=== PATIENT | female | born 1950 | race Native Hawaiian/Other Pacific Islander ===

== ENCOUNTER → 2016-06-02 | Outpatient (CLI) | payer MEDICARE, OTHER | LOC: M RAD 11:52 | PROVIDERS: ATTEND Emergency Medicine | DX: Z87.891 Personal history of nicotine dependence (principal) ==

== ENCOUNTER → 2016-09-08 | Outpatient (CLI) | payer MEDICARE, OTHER ==
--- NOTE | 2016-09-08 15:17 | REP ---
CT of the chest without IV contrast: Comparison is the low-dose lung screening CT dated 06/02/2016. On the comparison study there was a 7 mm lung nodule in the left lung. This is no longer present and was likely focal atelectasis previously. On the comparison study there was a 11 mm ground-glass nodule laterally in the right middle lobe inferiorly. This is no longer present. It was likely atelectasis previously. On the comparison study there was a new faintly visible 4 mm nodule in the left lung on image 39. This is unchanged and is on image 38 out R study today. On the comparison study there was a 3 mm lung nodule in the left lower lobe on image 39. This is on image 39 MR study today and is unchanged. There are no other lung nodules. No pleural effusions. There are no infiltrates. There is no mediastinal lymph node enlargement. There is no axillary lymph node enlargement. In the absence of IV contrast the study is insensitive for hilar lymph node enlargement. The thoracic aorta is unremarkable. Cardiac size is normal. There is no pericardial effusion. The visualized upper abdominal contents are unremarkable. The adrenals are not imaged in entirety. The visualized portions of the adrenals are unremarkable. Impression: On the previous study. There is a left upper lobe 7 mm nodule and there was a right middle lobe 11 mm ground-glass opacity. These are no longer present. There is a persisting left upper lobe 4 mm nodule. There is a persisting left lower lobe 3 mm nodule. Follow-up for nodules this size according to Fleischner Society recommendations for a low risk patient is CT at 12 months, if stable, no further follow-up. For a high risk patient initial CT at 6-12 months, if stable repeat CT at 18-24 months. Signed by Juancarlos Bernabe MD 09/08/2016 03:09 P
== END ==
LOC: M RAD 12:43
PROVIDERS: ATTEND Internal Medicine Pulmonary Disease
DX: R91.1 Solitary pulmonary nodule (principal)

== ENCOUNTER → 2017-09-26 | Outpatient (CLI) | payer MEDICARE, OTHER | LOC: M RAD 10:31 | DX: R91.8 Other nonspecific abnormal finding of lung field (principal) | CPT/HCPCS: 71250 ==

== ENCOUNTER → 2018-09-07 | Outpatient (CLI) | payer MEDICARE, OTHER ==
[2018-09-07 17:15] LABS: BASO # 0.1 10^3/uL (0.0-0.2); BASO % 0.6 % (0.0-1.0); EOS # 0.2 10^3/uL (0.0-0.50); EOS % 1.8 % (0.0-3.0); HEMATOCRIT 42.3 % (36.0-47.0); HEMOGLOBIN 14.3 g/dl (12.0-15.5); LYMPH # 3.4 10^3/uL (1.5-4.5); LYMPH % 31.2 % (24.0-44.0); MEAN CORPUSCULAR HEMOGLOBIN 32.1 pg (27.0-33.0); MEAN CORPUSCULAR HGB CONC 33.8 g/dl (32.0-36.5); MEAN CORPUSCULAR VOLUME 95.1 fl (80.0-96.0); NEUTROPHILS # 6.2 10^3/uL (1.8-7.7); NEUTROPHILS % 56.9 % (36.0-66.0); PLATELET COUNT, AUTOMATED 366 10^3/uL (150-450); RED BLOOD COUNT 4.45 10^6/uL (4.00-5.40); WHITE BLOOD COUNT 10.9 10^3/uL (4.0-10.0)
[2018-09-07 17:54] LABS: ERYTHROCYTE SEDIMENTATION RATE 52 mm/hr (0-30)
== END ==
LOC: M LAB 16:39
PROVIDERS: ATTEND Internal Medicine
DX: M10.9 Gout, unspecified (principal); M25.561 Pain in right knee

== ENCOUNTER → 2020-09-15 | Outpatient (CLI) | payer MEDICARE, OTHER ==
--- NOTE | 2020-09-15 11:55 | REP ---
INDICATION: COUGH COMPARISON: 02/23/2014 TECHNIQUE: PA and lateral. FINDINGS: The mediastinum and cardiac silhouette are normal. Evidence for prior CABG. The lung shabazz are clear and without acute consolidation, effusion, or pneumothorax. The skeletal structures are intact and normal. IMPRESSION: No acute cardiopulmonary process. <Electronically signed by Erasmo Yee > 09/15/20 [id number]
== END ==
LOC: M WUC 11:31
PROVIDERS: ATTEND Internal Medicine
DX: R05 Cough (principal)

== ENCOUNTER → 2021-01-04 | Outpatient (CLI) | payer MEDICARE, OTHER ==
[~2021-01-04] MED LIST: GASTROGRAFIN SOLUTION 30ML (Q9963) ONE; ISOVUE-370 76% 100ML VIAL ONE
--- NOTE | 2021-01-04 15:55 | REP ---
INDICATION: LLQ PAIN ? DIVERTICULITIS. COMPARISON: None. TECHNIQUE: Abdomen/pelvis CT without and with IV contrast and with bowel contrast FINDINGS: The visualized lung shabazz are unremarkable except for minor atelectasis at the inferior tip of the lingula. The hepatic parenchyma is unremarkable. There are several tiny calculi in the gallbladder fundus along the dependent wall. The gallbladder is otherwise unremarkable. There is no biliary duct dilatation. No pericholecystic fluid. The pancreas and spleen are unremarkable. The adrenals are unremarkable. The kidneys are unremarkable. There are no renal calculi. No hydronephrosis. The abdominal aorta is unremarkable except for calcified atheroma. There is no periaortic adenopathy or mass. There is no bowel distention or obstruction. No colonic diverticula are identified. The colon is otherwise unremarkable. There is no ascites or adenopathy. Pelvis: The bladder is markedly distended. Uterus and adnexa are unremarkable. The pelvic bowel loops are unremarkable. There is no pelvic adenopathy or free fluid. IMPRESSION: There is no CT evidence of diverticulosis or diverticulitis. There are no renal calculi. There is no hydronephrosis. There is no bowel distention or obstruction. There are no inflammatory changes in the mesentery. There is no ascites or adenopathy. The bladder is markedly distended. <Electronically signed by Juancarlos Bernabe > 01/04/21 [id number]
== END ==
LOC: M PLAIMG 13:23
PROVIDERS: ATTEND Internal Medicine
DX: R10.32 Left lower quadrant pain (principal)
CPT/HCPCS: 74178; Q9963; Q9967

== ENCOUNTER → 2021-02-17 | Outpatient (REF) | payer MEDICARE, OTHER | LOC: M LAB REF 16:06 | PROVIDERS: ATTEND Internal Medicine | DX: D51.9 Vitamin B12 deficiency anemia, unspecified (principal) ==

== ENCOUNTER → 2021-09-15 | Outpatient (CLI) | payer MEDICARE, OTHER | LOC: M RAD 14:21 | PROVIDERS: ATTEND Internal Medicine Pulmonary Disease | DX: R94.2 Abnormal results of pulmonary function studies (principal) ==

== ENCOUNTER → 2021-09-20 | Outpatient (CLI) | payer MEDICARE, OTHER | LOC: M WHC 14:15 | PROVIDERS: ATTEND Internal Medicine | DX: Z12.31 Encounter for screening mammogram for malignant neoplasm of breast (principal); Z13.820 Encounter for screening for osteoporosis; M85.851 Other specified disorders of bone density and structure, right thigh; M85.852 Other specified disorders of bone density and structure, left thigh; M85.88 Other specified disorders of bone density and structure, other site ==

== ENCOUNTER → 2021-10-29 | Outpatient (REF) | payer MEDICARE, OTHER ==
[2021-10-29 18:47] LABS: PERCENT SATURATION 25.7 % (13.2-45.0)
== END ==
LOC: M LAB REF 16:58
PROVIDERS: ATTEND Internal Medicine
DX: R10.13 Epigastric pain (principal); D50.9 Iron deficiency anemia, unspecified

== ENCOUNTER → 2021-11-18 | Outpatient (CLI) | payer MEDICARE, OTHER ==
[~2021-11-18] MED LIST changes: +E-Z-GAS II EFFERVESCENT PACKET (SODIUM BICARB./CITRIC ACID/SIMETHICONE) As Ordered ONE; +E-Z-HD 98% w/w 340GM SUSP BTL As Ordered ONE; +E-Z-PAQUE 96% w/w SUSP 176GM BTL As Ordered ONE; -GASTROGRAFIN SOLUTION 30ML (Q9963) ONE; -ISOVUE-370 76% 100ML VIAL ONE
== END ==
LOC: M RAD 07:34
PROVIDERS: ATTEND Internal Medicine
DX: R10.13 Epigastric pain (principal)

== ENCOUNTER → 2022-03-19 | Outpatient (CLI) | payer MEDICARE, OTHER | LOC: M RAD 12:37 | PROVIDERS: ATTEND Physician Assistant | DX: M19.012 Primary osteoarthritis, left shoulder (principal) ==

== ENCOUNTER → 2022-06-29 | Outpatient (CLI) | payer MEDICARE, OTHER ==
[~2022-06-29] MED LIST changes: +ALLE1TAB23 PO; +ALLO100T PO; +AMLO1TAB24 PO; +ASPI81TA26 PO; +ATOR80TA59 PO; +BIOT2500 PO; -E-Z-GAS II EFFERVESCENT PACKET (SODIUM BICARB./CITRIC ACID/SIMETHICONE) As Ordered ONE; -E-Z-HD 98% w/w 340GM SUSP BTL As Ordered ONE; -E-Z-PAQUE 96% w/w SUSP 176GM BTL As Ordered ONE; +PANT40TA29 PO; +TELM1TAB37 PO; +VITA400D PO
== END ==
LOC: M LABSMTC 10:47
PROVIDERS: ATTEND Anesthesiology
DX: Z20.828 Contact with and (suspected) exposure to other viral communicable diseases (principal); Z11.52 Encounter for screening for COVID-19

== ENCOUNTER 2022-07-04 12:23 | Day surgery (SDC) | payer MEDICARE, OTHER ==
[~2022-07-04] VITALS: Ht 149.9 cm; Wt 50.4 kg
[~2022-07-04 12:23] MED LIST changes: +NS 1,000 ML IV ONE
[2022-07-04] MEDS ORDERED: LIDOCAINE 2% 100MG/5ML SDV (FOR ANES.) As Ordered ONE (13:23)
[2022-07-04] MEDS ORDERED: propofoL 200 MG/20 ML VIAL As Ordered ONE (13:23)
[2022-07-04 13:44] VITALS: BP 116/55
== END 2022-07-04 13:52 | disposition home or self-care (01) ==
LOC: M OPP 12:23
PROVIDERS: ATTEND Internal Medicine Gastroenterology
DX: K31.89 Other diseases of stomach and duodenum (principal); R10.13 Epigastric pain; I10 Essential (primary) hypertension; E78.5 Hyperlipidemia, unspecified; K21.9 Gastro-esophageal reflux disease without esophagitis; Z87.891 Personal history of nicotine dependence; Z79.02 Long term (current) use of antithrombotics/antiplatelets; Z79.82 Long term (current) use of aspirin; Z79.899 Other long term (current) drug therapy; Z95.1 Presence of aortocoronary bypass graft; Z80.1 Family history of malignant neoplasm of trachea, bronchus and lung

== ENCOUNTER → 2022-07-13 | Outpatient (CLI) | payer MEDICARE, OTHER ==
[~2022-07-13] MED LIST changes: -NS 1,000 ML IV ONE
== END ==
LOC: M RAD 10:59
PROVIDERS: ATTEND Physician Assistant
DX: I73.9 Peripheral vascular disease, unspecified (principal)

== ENCOUNTER → 2022-11-17 | Outpatient (CLI) | payer MEDICARE, OTHER ==
[~2022-11-17] MED LIST changes: +CHOL10DR5 PO; -VITA400D PO
== END ==
LOC: M RAD 12:14
PROVIDERS: ATTEND Internal Medicine Pulmonary Disease
DX: Z87.891 Personal history of nicotine dependence (principal)

== ENCOUNTER → 2023-03-31 | Outpatient (CLI) | payer MEDICARE, OTHER | LOC: M WUC 14:51 | PROVIDERS: ATTEND Internal Medicine | DX: R05.9 Cough, unspecified (principal); I51.7 Cardiomegaly ==

== ENCOUNTER → 2023-04-18 | Outpatient (REF) | payer MEDICARE, OTHER | LOC: M LAB REF 15:47 | PROVIDERS: ATTEND Nurse Practitioner Family | DX: R30.0 Dysuria (principal) ==

== ENCOUNTER 2023-07-12 00:37 | Emergency (ER) | payer MEDICARE, OTHER ==
[~2023-07-12] VITALS: Ht 149.9 cm; Wt 49.1 kg
[~2023-07-12 00:37] MED LIST changes: -ALLE1TAB23 PO; +FEXO-157 PO
[2023-07-12 01:15] LABS: APPEARANCE, URINE CLEAR (CLEAR); BACTERIA, URINE AUTO NEGATIVE (NEGATIVE); BILIRUBIN, URINE AUTO NEGATIVE (NEGATIVE); BLOOD, URINE BLOOD 1+ (NEGATIVE); COLOR, URINE STRAW (YELLOW); GLUCOSE, URINE (UA) AUTO NEGATIVE (NEGATIVE); KETONE, URINE AUTO NEGATIVE (NEGATIVE); LEUKOCYTE ESTERASE, URINE AUTO NEGATIVE (NEGATIVE); MUCUS, URINE SMALL (NEGATIVE); NITRITE, URINE AUTO NEGATIVE (NEGATIVE); PROTEIN, URINE AUTO NEGATIVE (NEGATIVE); RBC, URINE AUTO 0 /HPF (0-3); SPECIFIC GRAVITY URINE AUTO 1.008 (1.002-1.035); SQUAMOUS EPITHELIAL CELL UR AU 0 /HPF (0-6); UROBILINOGEN, URINE AUTO 0.2 mg/dL (0.0-2.0); WBC, URINE AUTO 1 /HPF (0-3)
[2023-07-12 01:35] LABS: BASO % 0.3 % (0.0-1.0); EOS # 0.1 10^3/uL (0.0-0.5); EOS % 0.9 % (0.0-3.0); HEMATOCRIT 40.7 % (36.0-47.0); HEMOGLOBIN 13.8 g/dl (12.0-15.5); LYMPH # 2.8 10^3/uL (1.5-5.0); LYMPH % 31.6 % (24.0-44.0); MEAN CORPUSCULAR HEMOGLOBIN 31.6 pg (27.0-33.0); MEAN CORPUSCULAR HGB CONC 33.9 g/dl (32.0-36.5); MEAN CORPUSCULAR VOLUME 93.1 fl (80.0-96.0); MONO # 1.5 10^3/uL (0.0-0.8); MONO % 16.4 % (2.0-8.0); NEUTROPHILS # 4.5 10^3/uL (1.5-8.5); NEUTROPHILS % 50.5 % (36.0-66.0); PLATELET COUNT, AUTOMATED 262 10^3/uL (150-450); RED BLOOD COUNT 4.37 10^6/uL (4.00-5.40); WHITE BLOOD COUNT 8.9 10^3/uL (4.0-10.0)
[2023-07-12 02:02] LABS: LIPASE 79 U/L (12-53); RSV AMPLIFICATION NEGATIVE (NEGATIVE)
[2023-07-12 02:04] LABS: ALBUMIN 4.2 G/DL (3.2-5.2); ALKALINE PHOSPHATASE 106 U/L (46-116); ALT/SGPT 39 U/L (7.0-40); AST/SGOT 38 U/L (<34); BILIRUBIN,DIRECT 0.1 MG/DL (<0.4); BILIRUBIN,TOTAL 0.3 MG/DL (0.3-1.2); BLOOD UREA NITROGEN 16 MG/DL (9-23); CALCIUM LEVEL 8.2 MG/DL (8.3-10.6); CARBON DIOXIDE LEVEL 27 MMOL/L (20-31); CHLORIDE LEVEL 104 MMOL/L (98-107); CREATININE FOR GFR 0.61 MG/DL (0.55-1.30); GLOMERULAR FILTRATION RATE > 60.0 (>39); GLUCOSE, FASTING 96 MG/DL (74-106); POTASSIUM SERUM 3.4 MMOL/L (3.5-5.1); SODIUM LEVEL 137 MMOL/L (136-145); TOTAL PROTEIN 7.5 G/DL (5.7-8.2)
[2023-07-12] MEDS: NS 500 ML IV ONE (02:05)
[2023-07-12] MEDS: DICYCLOMINE 10 MG CAP PO ONE (02:05)
[2023-07-12] MEDS ORDERED: LOPE2TAB12 PO (03:47)
[2023-07-12] MEDS ORDERED: ONDA4TAB6 PO (03:47)
[2023-07-12] MEDS: LOPERAMIDE 2 MG CAPLET PO ONE (03:58)
[2023-07-12 04:00] VITALS: BP 167/74; TEMP 97.8; O2SAT 98
== END 2023-07-12 04:06 | disposition home or self-care (01) ==
LOC: M ED 00:37
DX: A08.32 Astrovirus enteritis (principal); K21.9 Gastro-esophageal reflux disease without esophagitis; I10 Essential (primary) hypertension; K27.9 Peptic ulcer, site unspecified, unspecified as acute or chronic, without hemorrhage or perforation; Z88.5 Allergy status to narcotic agent; Z88.6 Allergy status to analgesic agent; Z79.82 Long term (current) use of aspirin; Z79.02 Long term (current) use of antithrombotics/antiplatelets; Z79.83 Long term (current) use of bisphosphonates; Z79.899 Other long term (current) drug therapy

== ENCOUNTER → 2023-09-07 | Outpatient (REF) | payer MEDICARE, OTHER ==
[~2023-09-07] MED LIST changes: +LOPE2TAB12 PO; +ONDA4TAB6 PO
[2023-09-07 16:52] LABS: APPEARANCE, URINE CLEAR (CLEAR); BACTERIA, URINE AUTO NEGATIVE (NEGATIVE); BILIRUBIN, URINE AUTO NEGATIVE (NEGATIVE); BLOOD, URINE BLOOD NEGATIVE (NEGATIVE); COLOR, URINE COLORLESS (YELLOW); GLUCOSE, URINE (UA) AUTO NEGATIVE (NEGATIVE); KETONE, URINE AUTO NEGATIVE (NEGATIVE); LEUKOCYTE ESTERASE, URINE AUTO NEGATIVE (NEGATIVE); MUCUS, URINE SMALL (NEGATIVE); NITRITE, URINE AUTO NEGATIVE (NEGATIVE); PROTEIN, URINE AUTO NEGATIVE (NEGATIVE); RBC, URINE AUTO 0 /HPF (0-3); SPECIFIC GRAVITY URINE AUTO 1.002 (1.002-1.035); SQUAMOUS EPITHELIAL CELL UR AU 0 /HPF (0-6); UROBILINOGEN, URINE AUTO 0.2 mg/dL (0.0-2.0); WBC, URINE AUTO 0 /HPF (0-3)
== END ==
LOC: M LAB REF 16:23
PROVIDERS: ATTEND Internal Medicine
DX: R30.0 Dysuria (principal); R35.0 Frequency of micturition

== ENCOUNTER → 2023-09-22 | Outpatient (CLI) | payer MEDICARE, OTHER | LOC: M RAD 15:31 | PROVIDERS: ATTEND Internal Medicine | DX: N83.201 Unspecified ovarian cyst, right side (principal); N88.8 Other specified noninflammatory disorders of cervix uteri ==

== ENCOUNTER → 2023-10-09 | Outpatient (REF) | payer MEDICARE, OTHER | LOC: M LAB REF 11:50 | PROVIDERS: ATTEND Internal Medicine | DX: R10.2 Pelvic and perineal pain (principal); C49.5 Malignant neoplasm of connective and soft tissue of pelvis; D39.11 Neoplasm of uncertain behavior of right ovary ==

== ENCOUNTER → 2023-11-03 | Outpatient (CLI) | payer MEDICARE, OTHER ==
[~2023-11-03] MED LIST changes: +ONDA-282 PO; -ONDA4TAB6 PO
== END ==
LOC: M WHC 14:09
PROVIDERS: ATTEND Internal Medicine
DX: Z12.31 Encounter for screening mammogram for malignant neoplasm of breast (principal)

== ENCOUNTER → 2023-12-29 | Outpatient (REF) | payer MEDICARE, OTHER | LOC: M LAB REF 16:21 | PROVIDERS: ATTEND Physician Assistant | DX: R30.0 Dysuria (principal) ==

== ENCOUNTER → 2024-02-12 | Outpatient (REF) | payer MEDICARE, OTHER ==
[~2024-02-12] MED LIST changes: -FEXO-157 PO; +FEXO-63 PO
[2024-02-12 18:35] LABS: APPEARANCE, URINE CLEAR (CLEAR); BACTERIA, URINE AUTO NEGATIVE (NEGATIVE); BILIRUBIN, URINE AUTO NEGATIVE (NEGATIVE); BLOOD, URINE BLOOD NEGATIVE (NEGATIVE); COLOR, URINE COLORLESS (YELLOW); GLUCOSE, URINE (UA) AUTO NEGATIVE (NEGATIVE); KETONE, URINE AUTO NEGATIVE (NEGATIVE); LEUKOCYTE ESTERASE, URINE AUTO NEGATIVE (NEGATIVE); NITRITE, URINE AUTO NEGATIVE (NEGATIVE); PROTEIN, URINE AUTO NEGATIVE (NEGATIVE); RBC, URINE AUTO 0 /HPF (0-3); SPECIFIC GRAVITY URINE AUTO 1.004 (1.002-1.035); SQUAMOUS EPITHELIAL CELL UR AU 0 /HPF (0-6); UROBILINOGEN, URINE AUTO 0.2 mg/dL (0.0-2.0); WBC, URINE AUTO 0 /HPF (0-3)
== END ==
LOC: M SMT 17:05
PROVIDERS: ATTEND Nurse Practitioner Family
DX: N39.0 Urinary tract infection, site not specified (principal)

== ENCOUNTER → 2024-02-13 | Outpatient (REF) | payer MEDICARE, OTHER ==
[2024-02-13 19:09] LABS: APPEARANCE, URINE CLEAR (CLEAR); BACTERIA, URINE AUTO NEGATIVE (NEGATIVE); BILIRUBIN, URINE AUTO NEGATIVE (NEGATIVE); BLOOD, URINE BLOOD NEGATIVE (NEGATIVE); COLOR, URINE COLORLESS (YELLOW); GLUCOSE, URINE (UA) AUTO NEGATIVE (NEGATIVE); KETONE, URINE AUTO NEGATIVE (NEGATIVE); LEUKOCYTE ESTERASE, URINE AUTO NEGATIVE (NEGATIVE); NITRITE, URINE AUTO NEGATIVE (NEGATIVE); PROTEIN, URINE AUTO NEGATIVE (NEGATIVE); RBC, URINE AUTO 0 /HPF (0-3); SPECIFIC GRAVITY URINE AUTO 1.002 (1.002-1.035); SQUAMOUS EPITHELIAL CELL UR AU 0 /HPF (0-6); UROBILINOGEN, URINE AUTO 0.2 mg/dL (0.0-2.0); WBC, URINE AUTO 0 /HPF (0-3)
== END ==
LOC: M SMT 17:00
PROVIDERS: ATTEND Nurse Practitioner Family
DX: N39.0 Urinary tract infection, site not specified (principal)

== ENCOUNTER → 2024-02-14 | Outpatient (CLI) | payer MEDICARE, OTHER | LOC: M PLAIMG 08:17 | PROVIDERS: ATTEND Nurse Practitioner Family | DX: N39.0 Urinary tract infection, site not specified (principal); K80.20 Calculus of gallbladder without cholecystitis without obstruction ==

== ENCOUNTER → 2024-02-26 | Outpatient (REF) | payer MEDICARE, OTHER ==
[2024-02-27 12:23] LABS: RSV AMPLIFICATION NEGATIVE (NEGATIVE)
== END ==
LOC: M LAB REF 11:18
PROVIDERS: ATTEND Internal Medicine
DX: R53.83 Other fatigue (principal)

== ENCOUNTER 2024-03-01 10:49 | Observation (INO) | payer MEDICARE, OTHER ==
[~2024-03-01] VITALS: Ht 149.9 cm; Wt 46.2 kg
[2024-03-01 12:24] LABS: HEMATOCRIT 36.1 % (36.0-47.0); HEMOGLOBIN 12.5 g/dl (12.0-15.5); MEAN CORPUSCULAR HEMOGLOBIN 31.1 pg (27.0-33.0); MEAN CORPUSCULAR HGB CONC 34.6 g/dl (32.0-36.5); MEAN CORPUSCULAR VOLUME 89.8 fl (80.0-96.0); PLATELET COUNT, AUTOMATED 290 10^3/uL (150-450); RED BLOOD COUNT 4.02 10^6/uL (4.00-5.40); WHITE BLOOD COUNT 12.9 10^3/uL (4.0-10.0)
[2024-03-01] MEDS: ONDANSETRON 4MG 2ML VIAL IV ONE (12:53)
[2024-03-01 12:55] LABS: INR 1.16; PARTIAL THROMBOPLASTIN TIME 38.2 SECONDS (24.8-34.2); PROTHROMBIN TIME 14.5 SECONDS (12.5-14.5)
[2024-03-01 13:05] LABS: LIPASE 163 U/L (12-53)
[2024-03-01 13:07] LABS: ALBUMIN 3.2 G/DL (3.2-5.2); ALKALINE PHOSPHATASE 120 U/L (46-116); ALT/SGPT 30 U/L (7.0-40); AST/SGOT 30 U/L (<34); BILIRUBIN,DIRECT 0.2 MG/DL (<0.4); BILIRUBIN,TOTAL 0.4 MG/DL (0.3-1.2); BLOOD UREA NITROGEN 15 MG/DL (9-23); CALCIUM LEVEL 8.8 MG/DL (8.3-10.6); CARBON DIOXIDE LEVEL 28 MMOL/L (20-31); CHLORIDE LEVEL 104 MMOL/L (98-107); CREATININE FOR GFR 0.95 MG/DL (0.55-1.30); GLOMERULAR FILTRATION RATE > 60.0 (>39); GLUCOSE, FASTING 111 MG/DL (74-106); POTASSIUM SERUM 3.5 MMOL/L (3.5-5.1); SODIUM LEVEL 139 MMOL/L (136-145); TOTAL PROTEIN 7.3 G/DL (5.7-8.2)
[2024-03-01 13:32] LABS: ATYPICAL LYMPH 5 % (0-5); EOSINOPHILS 1 % (0-3); LYMPHOCYTES 21 % (16-44); MONOCYTES 9 % (0-5); NEUTROPHILS 56 % (28-66)
[2024-03-01 13:33] LABS: PLATELET ESTIMATE NORMAL (NORMAL)
[2024-03-01] MEDS: GASTROGRAFIN SOLUTION 30ML PO SCH (15:17)
[2024-03-01] MEDS ORDERED: CIPR-249 PO (15:45)
[2024-03-01] MEDS ORDERED: DORZ2SOL5 OU (15:45)
[2024-03-01] MEDS ORDERED: UREA1CRE3 TOP (15:45)
[2024-03-01] MEDS ORDERED: METR-265 PO (15:45)
[2024-03-01] MEDS ORDERED: AMOX875T2 PO (15:45)
[2024-03-01] MEDS ORDERED: ELID1CRE11 TOP (15:45)
[2024-03-01] MEDS ORDERED: HOME MED LIST COMPLETE! XX SCH (15:45)
[2024-03-01] MEDS ORDERED: BRIM1OPD OU (15:45)
[2024-03-01] MEDS ORDERED: XALA0.007 OU (15:45)
[2024-03-01] MEDS ORDERED: VITA-256 PO (15:45)
[2024-03-01] MEDS ORDERED: REFR0.5D8 OU (15:45)
[2024-03-01] MEDS ORDERED: ISOVUE-370 76% 100ML VIAL As Ordered ONE (16:19)
[2024-03-01] MEDS: SUCRALFATE SUSP 1GM/10ML UD PO SCH (18:54)
[2024-03-01] MEDS: NS 1,000 ML IV SCH (19:05)
[2024-03-01] MEDS ORDERED: PROHANCE 279.3MG/ML 5ML VIAL As Ordered ONE (19:59)
[2024-03-01 21:10] VITALS: BP 153/66; TEMP 97.5; O2SAT 100
[2024-03-01 22:32] LABS: HEMATOCRIT 35.4 % (36.0-47.0); HEMOGLOBIN 12.2 g/dl (12.0-15.5); MEAN CORPUSCULAR HGB CONC 34.5 g/dl (32.0-36.5); MEAN CORPUSCULAR VOLUME 89.8 fl (80.0-96.0); PLATELET COUNT, AUTOMATED 293 10^3/uL (150-450); RED BLOOD COUNT 3.94 10^6/uL (4.00-5.40); WHITE BLOOD COUNT 10.6 10^3/uL (4.0-10.0)
[2024-03-01] MEDS: ATORVASTATIN 20 MG TAB PO SCH (23:05)
[2024-03-01] MEDS: PANTOPRAZOLE 40MG VIAL IV SCH (23:06)
[2024-03-01] MEDS: TELMISARTAN 20 MG TAB PO SCH (23:06)
[2024-03-01] MEDS: LATANOPROST 0.005% OPHTH SOLN 2.5 ML OU SCH (23:10)
[2024-03-01] MEDS: COSOPT OCUMETER PLUS 10ML (DORZOLAMIDE/TIMOLOL) OU SCH (23:10)
[2024-03-02 03:50] VITALS: BP 138/48; TEMP 97.9; O2SAT 95
[2024-03-02 04:44] LABS: HEMATOCRIT 33.8 % (36.0-47.0); HEMOGLOBIN 11.6 g/dl (12.0-15.5); MEAN CORPUSCULAR HEMOGLOBIN 31.3 pg (27.0-33.0); MEAN CORPUSCULAR HGB CONC 34.3 g/dl (32.0-36.5); MEAN CORPUSCULAR VOLUME 91.1 fl (80.0-96.0); PLATELET COUNT, AUTOMATED 282 10^3/uL (150-450); RED BLOOD COUNT 3.71 10^6/uL (4.00-5.40); WHITE BLOOD COUNT 11.4 10^3/uL (4.0-10.0)
[2024-03-02 05:15] LABS: BLOOD UREA NITROGEN 9 MG/DL (9-23); CARBON DIOXIDE LEVEL 27 MMOL/L (20-31); CHLORIDE LEVEL 107 MMOL/L (98-107); CHOLESTEROL LEVEL 98 MG/DL (<200); CHOLESTEROL RISK RATIO 3.76 (<5); CREATININE FOR GFR 0.81 MG/DL (0.55-1.30); GLOMERULAR FILTRATION RATE > 60.0 (>39); GLUCOSE, FASTING 78 MG/DL (74-106); LDL CHOLESTEROL 55.4 MG/DL (<100); POTASSIUM SERUM 3.2 MMOL/L (3.5-5.1); SODIUM LEVEL 141 MMOL/L (136-145); TRIGLYCERIDES LEVEL 83 MG/DL (<150)
[2024-03-02] MEDS: ASPIRIN 81MG ENTERIC TABLET PO SCH (09:00)
[2024-03-02] MEDS: BRIMONIDINE 0.1% OPHTH SOLN 5ML OU SCH (09:29)
[2024-03-02] MEDS: KCL 20MEQ IN D5/0.45NS 1000ML 1,000 ML IV SCH (09:31)
[2024-03-02] MEDS: allopurinoL 100 MG TAB PO SCH (09:34)
[2024-03-02] MEDS: amLODIPine 5 MG TAB PO SCH (09:34)
[2024-03-02] MEDS ORDERED: REFRESH PLUS EYE OU PRN (10:40)
[2024-03-02 12:00] VITALS: BP 145/64; TEMP 98.2; O2SAT 98
[2024-03-02] MEDS: OLOPATADINE 0.1% OU SCH (12:20)
[2024-03-02] MEDS: OPTHALMIC OU SCH (12:20)
[2024-03-02 20:00] VITALS: BP 145/62; TEMP 97.2; O2SAT 98
[2024-03-02] MEDS: AZITHROMYCIN 250MG TABLET PO SCH (20:39)
[2024-03-03 04:20] VITALS: BP 145/61; TEMP 97.9; O2SAT 97
[2024-03-03 06:23] LABS: HEMATOCRIT 34.3 % (36.0-47.0); HEMOGLOBIN 11.5 g/dl (12.0-15.5); MEAN CORPUSCULAR HEMOGLOBIN 30.5 pg (27.0-33.0); MEAN CORPUSCULAR HGB CONC 33.5 g/dl (32.0-36.5); PLATELET COUNT, AUTOMATED 310 10^3/uL (150-450); RED BLOOD COUNT 3.77 10^6/uL (4.00-5.40); WHITE BLOOD COUNT 10.4 10^3/uL (4.0-10.0)
[2024-03-03 06:44] LABS: LIPASE 184 U/L (12-53)
[2024-03-03 06:45] LABS: AMYLASE 136 U/L (30-118)
[2024-03-03 07:07] LABS: ALBUMIN 2.7 G/DL (3.2-5.2); ALKALINE PHOSPHATASE 102 U/L (46-116); ALT/SGPT 29 U/L (7.0-40); AST/SGOT 30 U/L (<34); BILIRUBIN,TOTAL 0.4 MG/DL (0.3-1.2); BLOOD UREA NITROGEN < 5 MG/DL (9-23); CALCIUM LEVEL 8.2 MG/DL (8.3-10.6); CARBON DIOXIDE LEVEL 29 MMOL/L (20-31); CHLORIDE LEVEL 108 MMOL/L (98-107); CREATININE FOR GFR 0.74 MG/DL (0.55-1.30); GLOMERULAR FILTRATION RATE > 60.0 (>39); GLUCOSE, FASTING 149 MG/DL (74-106); POTASSIUM SERUM 3.3 MMOL/L (3.5-5.1); SODIUM LEVEL 141 MMOL/L (136-145); TOTAL PROTEIN 6.5 G/DL (5.7-8.2)
[2024-03-03 08:23] VITALS: BP 153/77
[2024-03-03] MEDS ORDERED: AZIT500T5 PO (10:48)
[2024-03-03 12:18] VITALS: BP 152/75; TEMP 97.7; O2SAT 99
== END 2024-03-03 15:10 | disposition home or self-care (01) ==
LOC: M ED 10:49 → M MSPAV 10:50 → UNDOADMOB 18:24 → M ED INP 18:24 → M MSPAV 21:07 → M ED INP 21:07
PROVIDERS: ADMIT Internal Medicine; ATTEND Family Medicine
DX: A04.5 Campylobacter enteritis (principal); I25.10 Atherosclerotic heart disease of native coronary artery without angina pectoris; Z95.1 Presence of aortocoronary bypass graft; K21.9 Gastro-esophageal reflux disease without esophagitis; Z98.62 Peripheral vascular angioplasty status; I10 Essential (primary) hypertension; M10.9 Gout, unspecified; Z79.2 Long term (current) use of antibiotics; E87.6 Hypokalemia
CPT/HCPCS: 36415; 74177; 74183; 80048; 80053; 80061; 80076; 82150; 83690; 85025; 85027; 85610; 85730; 86850; 86900; 86901; 87486; 87507; 87581; 87633; 87798; 93041; 94760; 96361; 96374; 96375; 96376; 99285; A9576; G0378; J2405; J2470; Q9963; Q9967

== ENCOUNTER → 2024-03-19 | Outpatient (REF) | payer MEDICARE, OTHER ==
[~2024-03-19] MED LIST changes: +AMOX875T2 PO; +AZIT500T5 PO; +BRIM1OPD OU; +CIPR-249 PO; +DORZ2SOL5 OU; +ELID1CRE11 TOP; +METR-265 PO; +REFR0.5D8 OU; +UREA1CRE3 TOP; +VITA-256 PO; +XALA0.007 OU
[2024-03-19 15:25] LABS: APPEARANCE, URINE HAZY (CLEAR); BACTERIA, URINE AUTO NEGATIVE (NEGATIVE); BILIRUBIN, URINE AUTO NEGATIVE (NEGATIVE); BLOOD, URINE BLOOD 1+ (NEGATIVE); COLOR, URINE AMBER (YELLOW); GLUCOSE, URINE (UA) AUTO NEGATIVE (NEGATIVE); KETONE, URINE AUTO TRACE mg/dL (NEGATIVE); LEUKOCYTE ESTERASE, URINE AUTO NEGATIVE (NEGATIVE); MUCUS, URINE SMALL (NEGATIVE); NITRITE, URINE AUTO NEGATIVE (NEGATIVE); PROTEIN, URINE AUTO 2+ mg/dL (NEGATIVE); RBC, URINE AUTO 0 /HPF (0-3); SPECIFIC GRAVITY URINE AUTO 1.024 (1.002-1.035); SQUAMOUS EPITHELIAL CELL UR AU 1 /HPF (0-6); UROBILINOGEN, URINE AUTO 0.2 mg/dL (0.0-2.0); WBC, URINE AUTO 5 /HPF (0-3)
== END ==
LOC: M LAB REF 14:52
PROVIDERS: ATTEND Internal Medicine
DX: R39.11 Hesitancy of micturition (principal)

== ENCOUNTER → 2024-03-22 | Outpatient (CLI) | payer MEDICARE, OTHER | LOC: M RAD 10:13 | PROVIDERS: ATTEND Internal Medicine Pulmonary Disease | DX: R94.2 Abnormal results of pulmonary function studies (principal); Z87.891 Personal history of nicotine dependence ==

== ENCOUNTER → 2024-03-27 | Outpatient (CLI) | payer MEDICARE, OTHER | LOC: M RAD 09:26 | PROVIDERS: ATTEND Internal Medicine | DX: R10.11 Right upper quadrant pain (principal); K80.20 Calculus of gallbladder without cholecystitis without obstruction; N28.1 Cyst of kidney, acquired ==

== ENCOUNTER → 2024-04-05 | Outpatient (CLI) | payer MEDICARE, OTHER ==
[~2024-04-05] MED LIST changes: +ISOVUE-370 76% 100ML VIAL As Ordered ONE
== END ==
LOC: M RAD 13:30
PROVIDERS: ATTEND Internal Medicine Pulmonary Disease
DX: R91.8 Other nonspecific abnormal finding of lung field (principal); I25.10 Atherosclerotic heart disease of native coronary artery without angina pectoris
CPT/HCPCS: 71260; Q9967

== ENCOUNTER → 2024-04-11 | Outpatient (CLI) | payer MEDICARE, OTHER ==
[~2024-04-11] MED LIST changes: -ISOVUE-370 76% 100ML VIAL As Ordered ONE
== END ==
LOC: M RAD 13:52
PROVIDERS: ATTEND Internal Medicine
DX: N88.8 Other specified noninflammatory disorders of cervix uteri (principal); N83.291 Other ovarian cyst, right side; R10.2 Pelvic and perineal pain

== ENCOUNTER → 2024-05-06 | Outpatient (CLI) | payer MEDICARE, OTHER | LOC: M RAD 11:14 | PROVIDERS: ATTEND Internal Medicine | DX: K80.20 Calculus of gallbladder without cholecystitis without obstruction (principal) | CPT/HCPCS: 78227; A9537 ==

== ENCOUNTER → 2024-08-20 | Outpatient (CLI) | payer MEDICARE, OTHER | LOC: M RAD 12:17 | PROVIDERS: ATTEND Surgery | DX: I73.9 Peripheral vascular disease, unspecified (principal) ==

== ENCOUNTER 2024-09-26 11:57 | Day surgery (SDC) | payer MEDICARE, OTHER ==
[~2024-09-26] VITALS: Ht 152.4 cm; Wt 45.9 kg
[~2024-09-26 11:57] MED LIST changes: -BRIM1OPD OU; +BRIM5DRO25 OU; +CVS1CAP2 PO; +ECOT81TA5 PO; +ROSU20TA86 PO
[2024-09-26] MEDS ORDERED: propofoL 200 MG/20 ML VIAL As Ordered ONE (13:45)
[2024-09-26] MEDS ORDERED: GLYCOPYRROLATE INJ 0.2 MG/ML 2 ML VIAL As Ordered ONE (13:46)
[2024-09-26] MEDS ORDERED: LIDOCAINE 2% 100MG/5ML SDV (FOR ANES.) As Ordered ONE (13:46)
[2024-09-26 14:20] VITALS: TEMP 96.1
[2024-09-26 14:50] VITALS: BP 165/70; O2SAT 100
== END 2024-09-26 15:17 | disposition home or self-care (01) ==
LOC: M OPP 11:57
PROVIDERS: ATTEND Internal Medicine Gastroenterology
DX: Z12.11 Encounter for screening for malignant neoplasm of colon (principal); D12.2 Benign neoplasm of ascending colon; Q43.8 Other specified congenital malformations of intestine; R12 Heartburn; Z88.5 Allergy status to narcotic agent; Z88.6 Allergy status to analgesic agent; Z79.899 Other long term (current) drug therapy; Z95.1 Presence of aortocoronary bypass graft; Z87.891 Personal history of nicotine dependence
CPT/HCPCS: 43235; 45385; 88305; J1596

== ENCOUNTER → 2024-12-06 | Outpatient (CLI) | payer MEDICARE, OTHER | LOC: M SOG 07:07 | PROVIDERS: ATTEND Neuromusculoskeletal Medicine, Sports Medicine | DX: M25.561 Pain in right knee (principal); M25.562 Pain in left knee ==

== ENCOUNTER → 2024-12-10 | Outpatient (REF) | payer MEDICARE, OTHER | LOC: M LAB REF 12:51 | PROVIDERS: ATTEND Neuromusculoskeletal Medicine, Sports Medicine | DX: M17.0 Bilateral primary osteoarthritis of knee (principal) ==

== ENCOUNTER 2024-12-30 14:03 | Outpatient (RCR) | payer MEDICARE, OTHER ==
[2024-12-31] MEDS ORDERED: AMLO1TAB25 PO (07:28)
[2024-12-31] MEDS ORDERED: ERGO500029 PO (07:28)
[2024-12-31] MEDS ORDERED: HYDR12.510 PO (07:28)
[2024-12-31] MEDS ORDERED: REFR0.1D OU (07:28)
[2024-12-31] MEDS ORDERED: VITA100093 PO (08:39)
[2024-12-31] MEDS ORDERED: OLOP5DRO17 OU (08:39)
[2025-01-15] MEDS ORDERED: COLA100C5 PO (13:21)
[2025-01-15] MEDS ORDERED: ACET32TAB PO (13:21)
[2025-01-15] MEDS ORDERED: ASPI81TAEC PO (13:21)
[2025-01-15] MEDS ORDERED: SENN18TA PO (13:21)
[2025-01-15] MEDS ORDERED: TRAM50TA2 PO (13:21)
== END 2025-01-26 ==
LOC: M PT 14:03
PROVIDERS: ATTEND Neuromusculoskeletal Medicine, Sports Medicine
DX: M17.0 Bilateral primary osteoarthritis of knee (principal)

== ENCOUNTER → 2024-12-31 | Outpatient (CLI) | payer MEDICARE, OTHER ==
[~2024-12-31] MED LIST changes: +AMLO1TAB25 PO; +ERGO500029 PO; +HYDR12.510 PO; +OLOP5DRO17; +REFR0.1D; +VITA100093 PO
[2024-12-31 13:24] LABS: BASO # 0.0 10^3/uL (0.0-0.2); BASO % 0.5 % (0.0-1.0); EOS # 0.1 10^3/uL (0.0-0.5); EOS % 1.0 % (0.0-3.0); LYMPH # 3.0 10^3/uL (1.5-5.0); LYMPH % 37.8 % (24.0-44.0); MONO # 0.8 10^3/uL (0.0-0.8); MONO % 9.8 % (2.0-8.0); NEUTROPHILS # 4.0 10^3/uL (1.5-8.5); NEUTROPHILS % 50.5 % (36.0-66.0); PLATELET COUNT, AUTOMATED 294 10^3/uL (150-450)
[2024-12-31 13:35] LABS: ESTIMATED AVERAGE GLUCOSE 134.0 MG/DL (60-110)
[2024-12-31 13:42] LABS: ALT/SGPT 21 U/L (7.0-40); AST/SGOT 26 U/L (<34); CALCIUM LEVEL 9.5 MG/DL (8.3-10.6); CARBON DIOXIDE LEVEL 31 MMOL/L (20-31); CHLORIDE LEVEL 99 MMOL/L (98-107); CREATININE FOR GFR 0.65 MG/DL (0.55-1.30); GLOMERULAR FILTRATION RATE > 90.0 (>39); POTASSIUM SERUM 4.4 MMOL/L (3.5-5.1); SODIUM LEVEL 140 MMOL/L (136-145)
== END ==
LOC: M RAD 12:42
PROVIDERS: ATTEND Neuromusculoskeletal Medicine, Sports Medicine
DX: M17.0 Bilateral primary osteoarthritis of knee (principal); Z79.899 Other long term (current) drug therapy

== ENCOUNTER 2025-01-14 09:48 | Observation (INO) | payer MEDICARE, OTHER ==
[2025-01-14] VITALS (7 sets, daily range): BP systolic 149–179; BP diastolic 65–73; TEMP 97.3–98.2; O2SAT 96–100
[~2025-01-14] VITALS: Ht 149.9 cm; Wt 45.4 kg
[~2025-01-14 09:48] MED LIST changes: +LR 1,000 ML IV SCH; -OLOP5DRO17; +OLOP5DRO17 OU; -REFR0.1D; +REFR0.1D OU
[2025-01-14] MEDS: LIDOCAINE 1% SDV 5 ML VIAL PN ONE (10:35)
[2025-01-14] MEDS: MIDAZOLAM INJ 2 MG/2 ML VIAL IV PRN (10:52)
[2025-01-14] MEDS: ROPIvacaine 0.5% 30ML VIAL PN ONE (10:55)
[2025-01-14] MEDS ORDERED: LIDOCAINE 2% 100 MG/5 ML SDV (FOR ANES.) As Ordered ONE (11:38)
[2025-01-14] MEDS: ceFAZolin SODIUM 2 GM in DEXTROSE 5% (D5W) ADV/MINI-BAG 50 ML IV ONE (11:42)
[2025-01-14] MEDS: TRANEXAMIC ACID 100 MG/ML 10ML VIAL As Ordered ONE (11:50)
[2025-01-14] MEDS: KETOROLAC 30 MG/ML 1 ML VIAL As Ordered ONE (12:12)
[2025-01-14] MEDS: VANCOMYCIN 1000MG/20ML VIAL As Ordered ONE (13:30)
[2025-01-14] MEDS: LR 1,000 ML IV SCH (14:25)
[2025-01-14] MEDS ORDERED: ONDANSETRON 4MG 2ML VIAL IV PRN (14:25)
[2025-01-14] MEDS ORDERED: LR 1,000 ML IV SCH (15:30)
[2025-01-14] MEDS: HYDROMORPHONE HCL 0.5 MG/0.5 ML SYRINGE IV PRN (15:42)
[2025-01-14] MEDS: ONDANSETRON 4MG 2ML VIAL IV PRN (15:43)
[2025-01-14 15:48] LABS: INR 0.89
[2025-01-14 16:05] LABS: KETONE, URINE AUTO RFX NEGATIVE (NEGATIVE); LEUKOCYTE ESTERASE UR AUTO RFX NEGATIVE (NEGATIVE); NITRITE, URINE AUTO RFX NEGATIVE (NEGATIVE); RBC, URINE AUTO RFX 0 /HPF (0-3); SQUAM EPITHELIAL CELL UR AURFX 0 /HPF (0-6); WBC, URINE AUTO RFX 0 /HPF (0-3)
[2025-01-14] MEDS ORDERED: HOME MED LIST COMPLETE! XX SCH (16:35)
[2025-01-14 17:29] LABS: PLATELET COUNT, AUTOMATED 308 10^3/uL (150-450)
[2025-01-14 17:56] LABS: ALT/SGPT 21 U/L (7.0-40); AST/SGOT 26 U/L (<34); CALCIUM LEVEL 8.8 MG/DL (8.3-10.6); CARBON DIOXIDE LEVEL 29 MMOL/L (20-31); CHLORIDE LEVEL 105 MMOL/L (98-107); CREATININE FOR GFR 0.49 MG/DL (0.55-1.30); GLOMERULAR FILTRATION RATE > 90.0 (>39); POTASSIUM SERUM 3.7 MMOL/L (3.5-5.1); SODIUM LEVEL 144 MMOL/L (136-145)
[2025-01-14] MEDS: traMADol 50 MG TAB PO PRN (19:07)
[2025-01-14] MEDS: DORZOLAMIDE/TIMOLOL 10 ML OPHTHALMIC SOLN OU SCH (20:37)
[2025-01-14] MEDS: TELMISARTAN 20 MG TAB PO SCH (20:37)
[2025-01-14] MEDS: BRIMONIDINE 0.1% OPHTH SOLN 5 ML OU SCH (20:37)
[2025-01-14] MEDS: ceFAZolin SODIUM 2 GM in DEXTROSE 5% (D5W) ADV/MINI-BAG 50 ML IV SCH (20:38)
[2025-01-14] MEDS: LATANOPROST 0.005% OPHTH SOLN 2.5 ML OU SCH (20:38)
[2025-01-14] MEDS: traMADol 50 MG TAB PO ONE (21:15)
[2025-01-14] MEDS: METHOCARBAMOL 1,000 MG/10 ML VIAL IV ONE (21:47)
[2025-01-15 01:00] VITALS: BP 143/63; TEMP 97.9; O2SAT 97
[2025-01-15] MEDS: traMADol 50 MG TAB PO PRN (03:13)
[2025-01-15] MEDS ORDERED: HYDROmorphone 2 MG TAB PO PRN (07:55)
[2025-01-15 08:00] VITALS: BP 162/72; TEMP 97.7; O2SAT 95
[2025-01-15] MEDS ORDERED: ACETAMINOPHEN 325 MG TAB PO PRN (08:10)
[2025-01-15 08:22] LABS: PLATELET COUNT, AUTOMATED 274 10^3/uL (150-450)
[2025-01-15 08:41] LABS: CALCIUM LEVEL 8.5 MG/DL (8.3-10.6); CARBON DIOXIDE LEVEL 28 MMOL/L (20-31); CHLORIDE LEVEL 101 MMOL/L (98-107); CREATININE FOR GFR 0.53 MG/DL (0.55-1.30); GLOMERULAR FILTRATION RATE > 90.0 (>39); POTASSIUM SERUM 3.6 MMOL/L (3.5-5.1); SODIUM LEVEL 141 MMOL/L (136-145)
[2025-01-15] MEDS: ASPIRIN 81 MG ENTERIC TABLET PO SCH (08:41)
[2025-01-15] MEDS: SENNA 8.6 MG TAB PO SCH (08:41)
[2025-01-15] MEDS: MORPHINE 4 MG/ML 1 ML VIAL IV PRN (08:41)
[2025-01-15] MEDS: PANTOPRAZOLE 40MG TAB PO SCH (08:42)
[2025-01-15] MEDS: ROSUVASTATIN 10 MG TAB PO SCH (08:42)
[2025-01-15] MEDS: amLODIPine 10 MG TAB PO SCH (08:42)
[2025-01-15] MEDS: ASCORBIC ACID 500 MG TAB PO SCH (08:42)
[2025-01-15] MEDS: FERROUS SULFATE 325 MG TAB PO SCH (08:42)
[2025-01-15 09:06] VITALS: BP 162/72
[2025-01-15 12:00] VITALS: BP 175/74; TEMP 98.1; O2SAT 96
[2025-01-15] MEDS: HYDROmorphone 2 MG TAB PO PRN (12:31)
[2025-01-15] MEDS ORDERED: ACET32TAB PO (13:21)
[2025-01-15] MEDS ORDERED: ASPI81TAEC PO (13:21)
[2025-01-15] MEDS ORDERED: COLA100C5 PO (13:21)
[2025-01-15] MEDS ORDERED: TRAM50TA2 PO (13:21)
[2025-01-15] MEDS ORDERED: SENN18TA PO (13:21)
== END 2025-01-15 14:32 | disposition home health service (06) ==
LOC: M SDC 09:48 → M RR INP 09:49 → EEVIPCON 11:30 → M MS4PR 16:05
PROVIDERS: ADMIT Internal Medicine; ATTEND Internal Medicine
DX: M17.12 Unilateral primary osteoarthritis, left knee (principal); R30.0 Dysuria; I25.10 Atherosclerotic heart disease of native coronary artery without angina pectoris; I10 Essential (primary) hypertension; E78.5 Hyperlipidemia, unspecified; R73.03 Prediabetes; Z79.82 Long term (current) use of aspirin; Z79.899 Other long term (current) drug therapy; Z88.5 Allergy status to narcotic agent; Z88.8 Allergy status to other drugs, medicaments and biological substances
CPT/HCPCS: 27447; 36415; 73560; 80048; 80053; 81001; 85027; 85610; 85730; 88300; 96365; 96366; 96375; 97116; 97161; 97165; 97530; 97535; C1713; C1776; G0378; J0665; J0666; J0690; J1171; J2250; J2405; J2795; J2800; J3010; J3373; S2900

== ENCOUNTER → 2025-01-24 | Outpatient (CLI) | payer MEDICARE, OTHER ==
[~2025-01-24] MED LIST changes: +ACET32TAB PO; +ASPI81TAEC PO; +COLA100C5 PO; -LR 1,000 ML IV SCH; +SENN18TA PO; +TRAM50TA2 PO
== END ==
LOC: M SOG 07:30
PROVIDERS: ATTEND Physician Assistant
DX: M17.12 Unilateral primary osteoarthritis, left knee (principal); M25.562 Pain in left knee; Z98.890 Other specified postprocedural states

== ENCOUNTER → 2025-02-25 | Outpatient (RCR) | payer MEDICARE, OTHER | LOC: M PT 02-04 13:59 | PROVIDERS: ATTEND Neuromusculoskeletal Medicine, Sports Medicine | DX: Z47.1 Aftercare following joint replacement surgery (principal); M17.0 Bilateral primary osteoarthritis of knee ==

== ENCOUNTER 2025-03-27 13:35 | Outpatient (RCR) | payer MEDICARE, OTHER | END 2025-03-28 | LOC: M PT 13:35 | PROVIDERS: ATTEND Neuromusculoskeletal Medicine, Sports Medicine | DX: M17.0 Bilateral primary osteoarthritis of knee (principal) ==

== ENCOUNTER → 2025-04-21 | Outpatient (CLI) | payer MEDICARE, OTHER | LOC: M RAD 12:24 | PROVIDERS: ATTEND Internal Medicine Pulmonary Disease | DX: R94.2 Abnormal results of pulmonary function studies (principal); Z87.891 Personal history of nicotine dependence ==

== ENCOUNTER 2025-04-23 13:31 | Outpatient (RCR) | payer MEDICARE, OTHER | END 2025-04-27 | LOC: M PT 13:31 | PROVIDERS: ATTEND Neuromusculoskeletal Medicine, Sports Medicine | DX: M17.0 Bilateral primary osteoarthritis of knee (principal); Z96.652 Presence of left artificial knee joint ==

== ENCOUNTER 2025-05-08 13:30 | Outpatient (RCR) | payer MEDICARE, OTHER | END 2025-05-28 | LOC: M PT 13:30 | PROVIDERS: ATTEND Neuromusculoskeletal Medicine, Sports Medicine | DX: M17.0 Bilateral primary osteoarthritis of knee (principal) ==